=== PATIENT | female | born 1990 | race Caucasian/White ===

== ENCOUNTER 2024-12-19 19:06 | Emergency (ER) | payer MEDICAID ==
[~2024-12-19] VITALS: Ht 167.6 cm; Wt 60.0 kg
[2024-12-19 19:07] VITALS: O2SAT 99
[2024-12-19 21:36] LABS: BASOPHILS % 0.5 % (0.0-2.0); HEMATOCRIT. 33.7 % (36.0-48.0); HEMOGLOBIN. 11.6 g/dL (12.0-16.0); LYMPHOCYTES % 29.6 % (20.0-50.0); MEAN CORPUSCULAR HGB CONC 34.4 g/dL (31.0-37.0); MEAN PLATELET VOLUME 8.7 fl (7.4-10.4); MONOCYTES % 8.3 % (2.0-8.0); NEUTROPHILS % 60.6 % (40.0-76.0); PLATELET 273 x1000/uL (130-400); RED BLOOD CELL COUNT 3.74 mill/uL (4.2-5.4); RED CELL DISTRIBUTION WIDTH 12.2 % (11.6-14.6); WHITE BLOOD COUNT 5.4 x1000/uL (4.5-11.0)
[2024-12-19 21:41] LABS: CHLORIDE 106 mEq/L (98-107); POTASSIUM 3.4 mEq/L (3.5-5.1); SODIUM 140 mEq/L (136-145)
[2024-12-19 21:42] LABS: CALCIUM 9.2 mg/dL (8.7-10.4); CARBON DIOXIDE 25 mEq/L (21-32)
[2024-12-19 21:47] LABS: GLUCOSE 97 mg/dL (70-105); UREA NITROGEN BLOOD 15 mg/dL (9-23)
[2024-12-19 21:49] LABS: ACETAMINOPHEN < 2 ug/mL (10-30)
[2024-12-19 21:50] LABS: ETHANOL BLOOD < 10 mg/dL (<10); HCG SCREEN NEGATIVE
[2024-12-19 21:58] LABS: CLARITY URINE CLEAR (CLEAR); COLOR URINE YELLOW (YELLOW); GLUCOSE URINE NEGATIVE (NEGATIVE); KETONES URINE NEGATIVE (NEGATIVE); LEUKOCYTE ESTERASE URINE 1+ (NEGATIVE); NITRITE URINE NEGATIVE (NEGATIVE); OCCULT BLOOD URINE NEGATIVE (NEGATIVE); PROTEIN URINE NEGATIVE (NEGATIVE); SPECIFIC GRAVITY URINE 1.018 (1.005-1.030); UROBILINOGEN URINE 0.2 E.U./dL (0.2-1.0)
[2024-12-19 22:09] LABS: *AMPHETAMINES SCREEN URINE PRESUMPTIVE POSITIVE (NEGATIVE); *BARBITURATES SCREEN URINE NEGATIVE (NEGATIVE); *BENZODIAZEPINES SCREEN URINE NEGATIVE (NEGATIVE); *COCAINE SCREEN URINE NEGATIVE (NEGATIVE); CANNABINOID URINE SCREEN NEGATIVE (NEGATIVE); METHADONE URINE SCREEN NEGATIVE (NEGATIVE); OPIATES URINE SCREEN NEGATIVE (NEGATIVE); PHENCYCLIDINE URINE SCREEN NEGATIVE (NEGATIVE)
[2024-12-19 22:10] LABS: ECSTASY MDMA SCREEN URINE CONF.TEST INDICATED (NEGATIVE)
[2024-12-19 22:12] LABS: BACTERIA URINE 1+; RBC URINE 0-2 /hpf (0-2); SQUAMOUS EPITHELIAL CELL URINE 1+ /lpf (RARE/1+)
[2024-12-19] MEDS: TETANUS, DIPHTHERIA, PERTUSSIS VAC/PF 0.5ML (>10YR OLD) IM ONE (23:40)
[2024-12-19] MEDS ORDERED: DIPHENHYDRAMINE 50MG CAPSULE PO ONE (23:45)
[2024-12-19] MEDS ORDERED: DIPHENHYDRAMINE 25MG CAPSULE PO NR (23:45)
[2024-12-20] MEDS: DIPHENHYDRAMINE 25MG CAPSULE PO NR ×2 (00:09→21:15)
[2024-12-20] MEDS: DIPHENHYDRAMINE 50MG CAPSULE PO ONE (11:15)
[2024-12-20] MEDS ORDERED: LORAZEPAM 1MG TABLET PO PRN (11:30)
[2024-12-20] MEDS: FLUOXETINE HCL 10 MG CAPSULE PO SCH (13:30)
[2024-12-20] MEDS ORDERED: DIPHENHYDRAMINE 50MG CAPSULE PO ONE (21:00)
[2024-12-20 23:30] VITALS: BP 105/61; PULSE 93; RESP 18; TEMP 36.8; O2SAT 98
== END 2024-12-20 23:52 ==
LOC: ER 19:06
DX: R45.851 Suicidal ideations (principal); Z20.822 Contact with and (suspected) exposure to COVID-19
CPT/HCPCS: 80305; 80048; 81003; 80307; 80329; 80320; 84703; 85025; 36415; 99285; 87426; Q0163 ×2; A4663; Z7610; G0480